=== PATIENT | male | born 1985 | race Two or more races ===

== ENCOUNTER → 2017-12-12 | Day surgery (SDC) | payer MEDICAID ==
[2017-12-11 11:29] LABS: Urine WBC None Seen /hpf (0 - 3)
[2017-12-11 11:41] LABS: Urine Bacteria NONE SEEN /hpf (None Seen); Urine Blood Negative /uL (Negative); Urine Specific Gravity 1.006 (1.001-1.035)
[2017-12-11 11:44] LABS: Basophils # (auto) 0 uL; Basophils % (auto) 0.5 % (0.0-2.0); Eosinophils # (auto) 0.2 uL; Eosinophils % (auto) 3.8 % (0.0-7.0); Hematocrit 48.8 % (41.0-53.0); Hemoglobin 16.4 g/dL (13.5-17.5); Lymphocytes # (auto) 2.2 uL; Lymphocytes % (auto) 33.3 % (10.0-50.0); Mean Corpuscular Hemoglobin 31.6 pg (28.0-32.0); Mean Corpuscular Hgb Conc. 33.7 g/dL (32.0-36.0); Mean Corpuscular Volume 93.8 fL (80.0-100.0); Monocytes # (auto) 0.5 uL; Monocytes % (auto) 8.1 % (0.0-12.0); Neutrophils # (auto) 3.6 uL; Neutrophils % (auto) 54.3 % (37.0-80.0); Nucleated Red Blood Cells % 0.1 %; Platelet Count (auto) 261 10^3/uL (140-450); White Blood Cell 6.6 10^3/uL (4.4-10.8)
[2017-12-11 11:53] LABS: INR 0.92 (0.9-1.15); Partial Thromboplastin Time 27.4 sec (22.64-33.71)
[2017-12-11 11:57] LABS: Albumin 3.8 g/dL (3.4-5.0); BUN/Creatinine Ratio 11.1; Bilirubin, Total 0.4 mg/dL (0.2-1.0); Calcium 8.6 mg/dL (8.5-10.1); Total Protein 7.3 g/dL (6.4-8.2)
[~2017-12-12] VITALS: Ht 180.3 cm; Wt 113.4 kg
[~2017-12-12] MED LIST: BUPIVACAINE 0.75% INJ 10ML MPV SDV IJ ONE; KETOROLAC TROMETH 30 MG/ML 1ML VIAL IV ONE; KETOROLAC TROMETH 30 MG/ML 1ML VIAL ONE; MIDAZOLAM HCL 1MG/1ML-2 ML VIAL ONE; MORPHINE SULFATE INJECTION 1 ML ONE; NEOMYCIN-BACITRACIN-POLYM 15GM TOP OINT TOP ONE; ONDANSETRON HCL 4 MG/2 ML VIAL IV ONE; PROPOFOL 10 MG/ML 20 ML IV ONE; ceFAZolin 1GM/50ML 50 ML IV ONE; ePHEDrine SULFATE 50 MG/ML AMP IV PRN; fentaNYL CITRATE 100 MCG/2 ML VL IV ONE; fentaNYL CITRATE 100 MCG/2 ML VL ONE; hydrALAZINE HCL 20 MG/ML VL IV PRN
[2017-12-12] MEDS: MORPHINE SULFATE 8mg/ml INJ SDV IV PRN ×2 (09:48→10:02)
[2017-12-12 10:15] VITALS: BP 132/81
== END | disposition home or self-care (01) ==
LOC: SUR 06:37
PROVIDERS: ATTEND Podiatrist Foot & Ankle Surgery
DX: M20.12 Hallux valgus (acquired), left foot (principal); M21.622 Bunionette of left foot; M20.42 Other hammer toe(s) (acquired), left foot; Z68.34 Body mass index [BMI] 34.0-34.9, adult
CPT/HCPCS: 28110; 28285; 28296; J3010; L3260; 36415; 73620; 80053; 81001; 85025; 85610; 85730; C1769; J0690; J1885; J2250; J2270; J2704; J3490

== ENCOUNTER 2025-08-10 22:08 | Inpatient (IN) | payer MEDICAID ==
[~2025-08-10] VITALS: Ht 177.8 cm; Wt 104.9 kg
[2025-08-10 23:13] LABS: Hematocrit 46.5 % (41.0-53.0); Hemoglobin 16.0 g/dL (13.5-17.5); Mean Corpuscular Hemoglobin 31.1 pg (28.0-32.0); Mean Corpuscular Volume 90.6 fL (80.0-100.0); Nucleated Red Blood Cells % 0.2 %
[2025-08-10 23:23] LABS: Chloride 102 mmol/L (98-107); Potassium 4.0 mmol/L (3.5-5.1); Sodium 141 mmol/L (136-145)
[2025-08-10 23:24] LABS: Anion Gap 8 (5-15); Calcium 9.6 mg/dL (8.7-10.4)
--- NOTE | 2025-08-10 23:25 | ED.PDOC ---
History of Present Illness HPI Comments 40-year-old male who came to ER for pelvic pain. Patient states for the past 8 months he has been having a left-sided inguinal hernia. For the past month however, hernia would enlarge at times, but patient has been always successfully able to reduce it manually. Today, patient hasnt been able to reduce it, with notable enlarged and swollen left testicle. Denies any urinary symptoms. REVIEW OF SYSTEMS: General: No fever, no chills, or fatigue HEENT: No sore throat, no earache, no congestion, no neck pain. Cardiac: No chest pain. No palpitations. Lungs: No shortness of breath, no cough. GI: No nausea, no vomiting, no diarrhea, no constipation, no abdominal pain : No dysuria, frequency, or urgency. No hematuria. Musculoskeletal: No joint pain , no joint swelling, no extremity edema. Skin: No rash, no itching. Neuro: No headache, no dizziness, no weakness (And as sated in HPI) PHYSICAL EXAM: General: Awake, alert and oriented. No acute distress. Skin: Skin in warm, dry and intact without rashes or lesions. HEENT: The head is normocephalic and atraumatic. Conjunctivae are clear without exudates or hemorrhage. Sclera is non-icteric. Neck: Normal range of motion. No JVD. Cardiac: Regular rate Respiratory: No signs of respiratory distress. No Stridor. Extremities: Upper and lower extremities are atraumatic in appearance without deformity. Abdomen: Large left inguinal hernia extending into the scrotum. Not reducible. No overlying skin changes. Neurological: The patient is awake, alert and oriented to person, place, and time with normal speech. Speech is clear. There is no facial asymmetry. Normal gait Psychiatric: Appropriate mood and affect. Good judgement and insight. Chief Complaint: Pelvic Pain Time Seen by MD: 23:25 Reviewed Notes: Nurses Notes Allergies: Coded Allergies: NO KNOWN ALLERGIES (Unverified , 12/11/17) Home Meds No Active Prescriptions or Reported Meds Information Source: Patient Mode of Arrival: Ambulatory Past Medical History PAST MEDICAL HISTORY: Denies Surgical History: Denies all surgeries Family History Family History: Reviewed,noncontributory to illness Social History Smoker: Non-Smoker Alcohol: Denies ETOH Use Drugs: Denies Drug Use Lives In: Home Was a procedure done? Was a procedure done?: No Differential Dx Considerations may include: Hernia, urinary tract infection, abdominal pain X-Ray, Labs, Meds, VS Vital Signs Date Time Temp Pulse Resp B/P (MAP) Pulse Ox O2 Delivery O2 Flow Rate FiO2 08/11/25 02:30 89 14 132/87 (102) 98 08/11/25 02:08 69 16 134/90 08/11/25 00:23 98.6 92 16 139/89 (106) 98 98.6 08/11/25 00:23 Room Air* 0 21 08/10/25 22:15 98.3 82 18 125/90 96 98.3 Lab Test 08/10/25 22:50 Range/Units White Blood Count 9.2 4.4-10.8 10^3/uL Red Blood Count 5.14 4.5-5.90 10^6/uL Hemoglobin 16.0 13.5-17.5 g/dL Hematocrit 46.5 41.0-53.0 % Mean Corpuscular Volume 90.6 80.0-100.0 fL Mean Corpuscular Hemoglobin 31.1 28.0-32.0 pg Mean Corpuscular Hemoglobin Concent 34.3 32.0-36.0 g/dL Red Cell Distribution Width 14.0 11.8-14.3 % Platelet Count 276 140-450 10^3/uL Mean Platelet Volume 8.2 6.9-10.8 fL Neutrophils (%) (Auto) 55.6 37.0-80.0 % Lymphocytes (%) (Auto) 32.1 10.0-50.0 % Monocytes (%) (Auto) 7.8 0.0-12.0 % Eosinophils (%) (Auto) 4.1 0.0-7.0 % Basophils (%) (Auto) 0.4 0.0-2.0 % Neutrophils # (Auto) 5.1 1.6-8.6 10 ^3/uL Lymphocytes # (Auto) 3.0 0.4-5.4 10 ^3/uL Monocytes # (Auto) 0.7 0-1.3 10 ^3/uL Eosinophils # (Auto) 0.4 0-0.8 10 ^3/uL Basophils # (Auto) 0 0-0.2 10 ^3/uL Nucleated Red Blood Cells 0.2 % Sodium Level 141 136-145 mmol/L Potassium Level 4.0 3.5-5.1 mmol/L Chloride Level 102 98-107 mmol/L Carbon Dioxide Level 31 20-31 mmol/L Anion Gap 8 5-15 Blood Urea Nitrogen 9 9-23 mg/dL Creatinine 0.99 0.700-1.30 mg/dL Glomerular Filtration Rate Calc 99 >90 mL/min BUN/Creatinine Ratio 9.1 L 10.0-20.0 Serum Glucose 114 H 74-106 mg/dL Lactic Acid Level 0.6 0.4-2.0 mmol/L Calcium Level 9.6 8.7-10.4 mg/dL B-Type Natriuretic Peptide 6.47 0-100 pg/mL Current Medications Medications (Trade) Dose Ordered Sig/Dana Route Start Time Stop Time Status Last Admin Morphine Sulfate 2 mg ONCE ONCE IV 08/11/25 01:45 08/11/25 01:46 DC 08/11/25 02:08 EXAM: CT CT AB PEL WITH IV CON ONLY History: Right inguinal hernia include entire scrotum Comparison Study: None TECHNIQUE: Multidetector spiral CT of the chest, abdomen and pelvis was performed from lower neck to pubic symphysis. Intravenous contrast was administered during this examination. Portal venous imaging was obtained. Axial, coronal and sagittal multiplanar reformats were performed by the technologist on a separate workstation. Radiation Dose : 1. Chest/Abdomen/Pelvis: CTDIvol 23.88 mGy, DLP 1528.98 mGy*cm. Contrast: 100 cc Omnipaque 300. FINDINGS: Lower neck: Normal thyroid. Lungs: No focal consolidation, pleural effusion or pneumothorax. Heart/Vascular Structures: Normal heart size. No pericardial effusion. Lymph Nodes: No adenopathy Pleura: No pleural effusion or significant pneumothorax. Liver: The liver is normal in size. No focal lesions. Normal hepatic vascular enhancement. Gallbladder and Biliary Tree: Unremarkable Spleen: Unremarkable Pancreas: The pancreas is normal in appearance without focal lesions or abnormal enhancement. Adrenal Glands: Unremarkable Kidneys: Kidneys demonstrate normal symmetric enhancement without focal lesions, calculi or hydronephrosis. Bladder: Unremarkable Bowel: The stomach is grossly normal in appearance. Small bowel and colon are normal in caliber and distribution. Normal appendix is visualized in the right lower quadrant without findings of appendicitis. Ascites: Absent Lymphadenopathy: No mesenteric, retroperitoneal or periportal lymphadenopathy. Abdominal Wall and Mesentery: Fat containing left inguinal hernia measuring 5.2 x 4.2 cm with significant inflammatory changes. Small right inguinal hernia containing fat without inflammatory changes. Vasculature: The visualized abdominal aorta is normal in size and caliber. Abdominal and pelvic vessels demonstrate normal enhancement. Pelvic Organs: Unremarkable Musculoskeletal: No aggressive focal bony lesions, acute fractures or dislocation. IMPRESSION: Fat containing left inguinal hernia with inflammatory changes. No herniated bowel loops. Small right inguinal hernia containing fat without inflammatory changes. Time of 1ST Reevaluation: 23:19 Reevaluation 1ST: Unchanged Patient Education/Counseling: Other (Need for admission) Family Education/Counseling: No Family Present SEPSIS Sepsis Screen Date sepsis recognized/suspect: Aug 10, 2025 Time Sepsis recognized/suspect: 2218 Recent Procedure: No On Antibiotic Therapy: No Respiratory Rate >20: No Heart Rate >90: No Temp<36 C (96.8 F) or >38.3 C: No SBP <90 or MAP <65 mmHG: No New Acute Mental Status Change: No Is the patient on CPAP, BIPAP,: No Physician Orders Urinalysis (08/10/25 22:33) Ct Ab Pel With Iv Con Only (08/10/25 22:33) Saline Lock (08/10/25 22:33) * Surgical Consult (08/11/25 ) Vital Signs Date Time Temp Pulse Resp B/P (MAP) Pulse Ox O2 Delivery O2 Flow Rate FiO2 08/11/25 02:30 89 14 132/87 (102) 98 08/11/25 02:08 69 16 134/90 08/11/25 00:23 98.6 92 16 139/89 (106) 98 98.6 08/11/25 00:23 Room Air* 0 21 08/10/25 22:15 98.3 82 18 125/90 96 98.3 Laboratory Tests Test 08/10/25 22:50 Lactic Acid Level 0.6 mmol/L (0.4-2.0) White Blood Count 9.2 10^3/uL (4.4-10.8) Medications Medications Dose Ordered Sig/Dana Route Start Time Stop Time Status Last Admin Dose Admin Morphine Sulfate 2 mg ONCE ONCE IV 08/11/25 01:45 08/11/25 01:46 DC 08/11/25 02:08 Departure 1 Departure Time of Disposition: 01:36 Impression: Primary Impression: Left inguinal hernia Disposition: 09 ADMITTED INPATIENT Condition: Stable e-Prescriptions No Active Prescriptions or Reported Meds Comments Patient admitted to hospitalist service for further treatment, evaluation and monitoring. Critical Care Note Critical Care Time?: No Stability Stability form required: No Heart Score Heart Score: Heart Score Response (Comments) Value History N/A 0 EKG N/A 0 Age N/A 0 Risk Factors N/A 0 Troponin N/A 0 Total 0 I personally scribed for BALA WALLS MD ([email or web address]) on 08/10/25 at 23:25. Electronically submitted by Holger Babcock ([employer]). I personally scribed for BALA WALLS MD ([email or web address]) on 08/11/25 at 01:23. Electronically submitted by Holger Babcock ([employer]). BALA WALLS MD Aug 10, 2025 23:25
[2025-08-10 23:29] LABS: BUN/Creatinine Ratio 9.1 (10.0-20.0); Carbon Dioxide 31 mmol/L (20-31)
[2025-08-10 23:30] LABS: Blood Urea Nitrogen 9 mg/dL (9-23); Glucose 114 mg/dL (74-106)
[2025-08-11] MEDS: IOHEXOL 300 MG/ML 100ML BOTTLE IJ ONE (00:37)
--- NOTE | 2025-08-11 01:14 | DVH ---
EXAM: CT CT AB PEL WITH IV CON ONLY History: Right inguinal hernia include entire scrotum Comparison Study: None TECHNIQUE: Multidetector spiral CT of the chest, abdomen and pelvis was performed from lower neck to pubic symphysis. Intravenous contrast was administered during this examination. Portal venous imaging was obtained. Axial, coronal and sagittal multiplanar reformats were performed by the technologist on a separate workstation. Radiation Dose : 1. Chest/Abdomen/Pelvis: CTDIvol 23.88 mGy, DLP 1528.98 mGy*cm. Contrast: 100 cc Omnipaque 300. FINDINGS: Lower neck: Normal thyroid. Lungs: No focal consolidation, pleural effusion or pneumothorax. Heart/Vascular Structures: Normal heart size. No pericardial effusion. Lymph Nodes: No adenopathy Pleura: No pleural effusion or significant pneumothorax. Liver: The liver is normal in size. No focal lesions. Normal hepatic vascular enhancement. Gallbladder and Biliary Tree: Unremarkable Spleen: Unremarkable Pancreas: The pancreas is normal in appearance without focal lesions or abnormal enhancement. Adrenal Glands: Unremarkable Kidneys: Kidneys demonstrate normal symmetric enhancement without focal lesions, calculi or hydronephrosis. Bladder: Unremarkable Bowel: The stomach is grossly normal in appearance. Small bowel and colon are normal in caliber and distribution. Normal appendix is visualized in the right lower quadrant without findings of appendicitis. Ascites: Absent Lymphadenopathy: No mesenteric, retroperitoneal or periportal lymphadenopathy. Abdominal Wall and Mesentery: Fat containing left inguinal hernia measuring 5.2 x 4.2 cm with significant inflammatory changes. Small right inguinal hernia containing fat without inflammatory changes. Vasculature: The visualized abdominal aorta is normal in size and caliber. Abdominal and pelvic vessels demonstrate normal enhancement. Pelvic Organs: Unremarkable Musculoskeletal: No aggressive focal bony lesions, acute fractures or dislocation. IMPRESSION: Fat containing left inguinal hernia with inflammatory changes. No herniated bowel loops. Small right inguinal hernia containing fat without inflammatory changes.
[2025-08-11] MEDS: MORPHINE SULFATE INJ 2 MG/ml SYRG IV ONE (02:08)
[2025-08-11] MEDS: MORPHINE SULFATE 4 MG/ML SYR/VIAL ONE (02:08)
[2025-08-11] MEDS ORDERED: MORPHINE SULFATE INJ 2 MG/ml SYRG IV PRN (05:30)
--- NOTE | 2025-08-11 05:30 | DVHHPRES ---
History of Present Illness Resident Creating Document: SHAYLEE BRAXTON RESIDENT History of Present Illness Patient is a 40-year-old male with no past medical history who came to ER for left inguinal pain which he described as 8/10 in intensity, constant, radiating to suprapubic region, stated that for the past 8 months he has been having the left-sided inguinal hernia but 1 month ago he states it "popped out" but was able to push the hernia back. But since yesterday morning he was unable to reduce the hernia. Today, patient hasn't been able to reduce it, with notable enlarged and swollen left testicle. He denies any dysuria, hematuria, burning sensation with urination, fever, chills, nausea, vomiting, diarrhea. Past surgical history: Left foot surgery Family history: Reviewed noncontributory Personal history: Drinks 8 beers on the weekends, smokes marijuana on the weekends, denies smoking cigarettes , lives with family PCP: Dr. Cash Patient seen at bedside. Patient still complains of 8/10 pain in the left inguinal region which is radiating to suprapubic region. Patient also complained of mild epigastric pain. Review of Systems Constitutional: No: Fever, Chills, Sweats, Weakness, Malaise, Other Eyes: No: Pain, Vision change, Conjunctivae inflammation, Eyelid inflammation, Other, Redness ENT: No: Ear pain, Ear discharge, Nose pain, Nose discharge, Nose congestion, Mouth pain, Mouth swelling, Throat pain, Throat swelling, Other Respiratory: No: Cough, Dry, Shortness of breath, SOB with excertion, Wheezing, Hemoptysis, Pleuritic Pain, Sputum, Wheezing, Other Cardiovascular: No: Chest Pain, Palpitations, Orthopnea, Paroxysmal Noc. Dyspnea, Edema, Lt Headedness, Other Gastrointestinal: Abdominal Pain; No: Nausea, Vomiting, Diarrhea, Constipation, Melena, Hematochezia, Other Genitourinary: No Dysuria, No Frequency, No Incontinence, No Hematuria, No Retention; Other (Left Inguinal pain) Skin: No: Rash, Lesions, Jaundice, Bruising, Other Neurological: No: Weakness, Numbness, Incoordination, Change in speech, Confusion, Seizures, Other Allergies: Coded Allergies: NO KNOWN ALLERGIES (Unverified , 12/11/17) Exam Vital Signs Vital Signs Date Time Temp Pulse Resp B/P (MAP) Pulse Ox O2 Delivery O2 Flow Rate FiO2 08/11/25 02:30 89 14 132/87 (102) 98 08/11/25 00:23 98.6 98.6 08/11/25 00:23 Room Air* 0 21 Exam Patient lying on bed in moderate distress General: Patient alert and oriented in person, place and time. Patient following commands. HEENT: Normocephalic, atraumatic, moist mucous membranes Respiratory/pulmonary: Clear lungs bilaterally, vesicular murmurs present in almost all lung dale, no associated crackles or wheezes. Cardiovascular: Normal heart sounds S1 and S2 with no associated murmurs Abdomen: Abdomen nondistended, there is no pain to palpation in any of the abdominal quadrants, no palpable masses. Obese abdomen, Inguinal bulging with tenderness on palpation of left scrotum Extremities: There is no peripheral edema present at the lower extremities. Peripheral Pulses: 3+ Radial (R). 3+ Radial (L). 3+ Dorsalis pedis (R). 3+ Dorsalis pedis(L) Skin: No rashes or pruritus, there is no sacral edema present at this time. Neurological: Intact cranial nerves with no focal neurologic deficits Labs/Xrays Labs Test 08/10/25 22:50 Range/Units White Blood Count 9.2 4.4-10.8 10^3/uL Red Blood Count 5.14 4.5-5.90 10^6/uL Hemoglobin 16.0 13.5-17.5 g/dL Hematocrit 46.5 41.0-53.0 % Mean Corpuscular Volume 90.6 80.0-100.0 fL Mean Corpuscular Hemoglobin 31.1 28.0-32.0 pg Mean Corpuscular Hemoglobin Concent 34.3 32.0-36.0 g/dL Red Cell Distribution Width 14.0 11.8-14.3 % Platelet Count 276 140-450 10^3/uL Mean Platelet Volume 8.2 6.9-10.8 fL Neutrophils (%) (Auto) 55.6 37.0-80.0 % Lymphocytes (%) (Auto) 32.1 10.0-50.0 % Monocytes (%) (Auto) 7.8 0.0-12.0 % Eosinophils (%) (Auto) 4.1 0.0-7.0 % Basophils (%) (Auto) 0.4 0.0-2.0 % Neutrophils # (Auto) 5.1 1.6-8.6 10 ^3/uL Lymphocytes # (Auto) 3.0 0.4-5.4 10 ^3/uL Monocytes # (Auto) 0.7 0-1.3 10 ^3/uL Eosinophils # (Auto) 0.4 0-0.8 10 ^3/uL Basophils # (Auto) 0 0-0.2 10 ^3/uL Nucleated Red Blood Cells 0.2 % Sodium Level 141 136-145 mmol/L Potassium Level 4.0 3.5-5.1 mmol/L Chloride Level 102 98-107 mmol/L Carbon Dioxide Level 31 20-31 mmol/L Anion Gap 8 5-15 Blood Urea Nitrogen 9 9-23 mg/dL Creatinine 0.99 0.700-1.30 mg/dL Glomerular Filtration Rate Calc 99 >90 mL/min BUN/Creatinine Ratio 9.1 L 10.0-20.0 Serum Glucose 114 H 74-106 mg/dL Lactic Acid Level 0.6 0.4-2.0 mmol/L Calcium Level 9.6 8.7-10.4 mg/dL B-Type Natriuretic Peptide 6.47 0-100 pg/mL SEPSIS Sepsis Screen Date sepsis recognized/suspect: Aug 10, 2025 Time Sepsis recognized/suspect: 2218 Recent Procedure: No On Antibiotic Therapy: No Respiratory Rate >20: No Heart Rate >90: No Temp<36 C (96.8 F) or >38.3 C: No SBP <90 or MAP <65 mmHG: No New Acute Mental Status Change: No Is the patient on CPAP, BIPAP,: No Physician Orders Urinalysis (08/10/25 22:33) Ct Ab Pel With Iv Con Only (08/10/25 22:33) Saline Lock (08/10/25 22:33) * Surgical Consult (08/11/25 ) Admit (08/11/25 05:03) Complete Blood Count (08/12/25 04:00) Comprehensive Metabolic Panel (08/12/25 04:00) Npo (Nothing By Mouth) Diet (08/11/25 Breakfast) Condition: Serious (08/11/25 05:03) Bedrest With Bathroom Privileg (08/11/25 05:03) Stat Ekg For Chest Pain (08/11/25 05:03) Notify Of Changes From Base (08/11/25 05:03) Stave Machine Tender For 24 Hours (08/11/25 05:03) Emergency Dysrhythmia Protocol (08/11/25 05:03) Rhythm Strips Once Every Shift (08/11/25 05:03) Vital Signs Date Time Temp Pulse Resp B/P (MAP) Pulse Ox O2 Delivery O2 Flow Rate FiO2 08/11/25 02:30 89 14 132/87 (102) 98 08/11/25 02:08 69 16 134/90 08/11/25 00:23 98.6 92 16 139/89 (106) 98 98.6 08/11/25 00:23 Room Air* 0 21 08/10/25 22:15 98.3 82 18 125/90 96 98.3 Laboratory Tests Test 08/10/25 22:50 Lactic Acid Level 0.6 mmol/L (0.4-2.0) White Blood Count 9.2 10^3/uL (4.4-10.8) Medications Medications Dose Ordered Sig/Dana Route Start Time Stop Time Status Last Admin Dose Admin Morphine Sulfate 2 mg ONCE ONCE IV 08/11/25 01:45 08/11/25 01:46 DC 08/11/25 02:08 2 MG Assessment/Plan Assessment/Plan Incarcerated left inguinal hernia -CT abdomen showed Fat containing left inguinal hernia with inflammatory changes. No herniated bowel loops. Small right inguinal hernia containing fat wi thout inflammatory changes. -surgery consulted by ED - IV pain management -IV fluids Obesity BMI 35.4 Patient counseled on diet, exercise, lifestyle modification for 18 minutes Diet: NPO Goals of care addressed with the patient for more than 27 minutes: Full code status Case discussed with Dr. Salazar, patient and nurse Plan discussed with: Patient My Orders Orders - SHAYLEE BRAXTON RESIDENT Procedure Category Date Status Time Admit ADMIT 08/11/25 Transmitted 05:03 Complete Blood Count LAB 08/12/25 Verified 04:00 Comprehensive LAB 08/12/25 Verified Metabolic Panel 04:00 Npo (Nothing By DIET 08/11/25 Transmitted Mouth) Diet Breakfast Condition: Serious [facility] 08/11/25 In Process 05:03 Bedrest With Bathroom [facility] 08/11/25 In Process Privileg 05:03 Stat Ekg For Chest [facility] 08/11/25 In Process Pain 05:03 Notify Of Changes [facility] 08/11/25 In Process From Base 05:03 Stave Machine Tender For [facility] 08/11/25 In Process 24 Hours 05:03 Emergency Dysrhythmia [facility] 08/11/25 In Process Protocol 05:03 Rhythm Strips Once [facility] 08/11/25 In Process Every Shift 05:03 Visit Coding STANDARD RES Billing Provider: LYDIA SALAZAR MD Date of Service if different f: Aug 11, 2025 Common Visit Codes: [id number] INP/OBS CARE (HIGH) Secondary Visit Codes: [id number] CARE PLAN 30 MINUTES SHAYLEE BRAXTON RESIDENT Aug 11, 2025 05:30
[2025-08-11] MEDS: SODIUM CHLORIDE 0.9% 1,000 ML IV ONE (06:21)
[2025-08-11 06:50] LABS: Hematocrit 46.4 % (41.0-53.0); Hemoglobin 15.8 g/dL (13.5-17.5); Mean Corpuscular Hemoglobin 31.1 pg (28.0-32.0); Mean Corpuscular Volume 91.1 fL (80.0-100.0); Nucleated Red Blood Cells % 0.0 %
[2025-08-11 06:52] LABS: Alanine Aminotransferase 20 U/L (7-40); Albumin 4.5 g/dL (3.2-4.8); Alkaline Phosphatase 78 U/L (46-116); Anion Gap 8 (5-15); BUN/Creatinine Ratio 6.7 (10.0-20.0); Bilirubin, Total 0.4 mg/dL (0.2-1.0); Calcium 9.5 mg/dL (8.7-10.4); Carbon Dioxide 30 mmol/L (20-31); Chloride 103 mmol/L (98-107); Glucose 95 mg/dL (74-106); Potassium 4.2 mmol/L (3.5-5.1); Sodium 141 mmol/L (136-145); Total Protein 7.3 g/dL (5.7-8.2)
[2025-08-11 06:53] LABS: INR 0.98 (0.9-1.15); Partial Thromboplastin Time 27.7 SEC (24.5-34.5); Prothrombin Time 10.4 sec (9.3-11.8)
[2025-08-11 06:58] LABS: Blood Urea Nitrogen 6 mg/dL (9-23)
[2025-08-11 09:00] VITALS: BP 131/85; PULSE 60; RESP 20; TEMP 98.5; O2SAT 99
--- NOTE | 2025-08-11 09:23 | DVHINCON2 ---
Date of service: Aug 11, 2025 Allergies: Coded Allergies: NO KNOWN ALLERGIES (Unverified , 12/11/17) Home Meds No Active Prescriptions or Reported Meds Current Medications Current Medications Medications (Trade) Dose Ordered Sig/Dana Route PRN Reason Start Time Stop Time Status Last Admin Morphine Sulfate 2 mg Q6HPRN PRN IV MODERATE PAIN (4-6 PAIN SCALE) 08/11/25 05:30 Vital Signs Vital Signs Date Time Temp Pulse Resp B/P (MAP) Pulse Ox O2 Delivery O2 Flow Rate FiO2 08/11/25 02:30 89 14 132/87 (102) 98 08/11/25 00:23 98.6 98.6 08/11/25 00:23 Room Air* 0 21 Labs/Diagnostic Data Labs Test 08/11/25 06:13 08/10/25 22:50 Range/Units White Blood Count 6.8 # 4.4-10.8 10^3/uL Red Blood Count 5.10 4.5-5.90 10^6/uL Hemoglobin 15.8 13.5-17.5 g/dL Hematocrit 46.4 41.0-53.0 % Mean Corpuscular Volume 91.1 80.0-100.0 fL Mean Corpuscular Hemoglobin 31.1 28.0-32.0 pg Mean Corpuscular Hemoglobin Concent 34.1 32.0-36.0 g/dL Red Cell Distribution Width 13.4 11.8-14.3 % Platelet Count 269 140-450 10^3/uL Mean Platelet Volume 8.0 6.9-10.8 fL Neutrophils (%) (Auto) 59.7 37.0-80.0 % Lymphocytes (%) (Auto) 27.9 10.0-50.0 % Monocytes (%) (Auto) 8.2 0.0-12.0 % Eosinophils (%) (Auto) 3.8 0.0-7.0 % Basophils (%) (Auto) 0.4 0.0-2.0 % Neutrophils # (Auto) 4.0 1.6-8.6 10 ^3/uL Lymphocytes # (Auto) 1.9 0.4-5.4 10 ^3/uL Monocytes # (Auto) 0.6 0-1.3 10 ^3/uL Eosinophils # (Auto) 0.3 0-0.8 10 ^3/uL Basophils # (Auto) 0 0-0.2 10 ^3/uL Nucleated Red Blood Cells 0.0 % Prothrombin Time 10.4 9.3-11.8 sec Prothrombin Time INR 0.98 0.9-1.15 Activated Partial Thromboplast Time 27.7 24.5-34.5 SEC Sodium Level 141 136-145 mmol/L Potassium Level 4.2 3.5-5.1 mmol/L Chloride Level 103 98-107 mmol/L Carbon Dioxide Level 30 20-31 mmol/L Anion Gap 8 5-15 Blood Urea Nitrogen 6 L 9-23 mg/dL Creatinine 0.89 0.700-1.30 mg/dL Glomerular Filtration Rate Calc 112 >90 mL/min BUN/Creatinine Ratio 6.7 L 10.0-20.0 Serum Glucose 95 74-106 mg/dL Calcium Level 9.5 8.7-10.4 mg/dL Total Bilirubin 0.4 0.2-1.0 mg/dL Aspartate Amino Transferase (AST) 17 13-40 U/L Alanine Aminotransferase (ALT) 20 7-40 U/L Alkaline Phosphatase 78 46-116 U/L Total Protein 7.3 5.7-8.2 g/dL Albumin 4.5 3.2-4.8 g/dL Lactic Acid Level 0.6 0.4-2.0 mmol/L B-Type Natriuretic Peptide 6.47 0-100 pg/mL Assessment 40 year old male with 8 month history of left scrotal discomfort and painful left inguinal hernia. Scrotal ultrasound reported as showing normal arterial blood flow to both testicles, Ct scan shows no evidence of bowel incarceration, patient without nausea or vomiting, repair risks and complications explained in detail. Plan discussed with: Patient RITA MONDRAGON MD Aug 11, 2025 09:23
[2025-08-11 10:08] VITALS: BP 131/85; PULSE 60; RESP 18; TEMP 98.5; O2SAT 99
--- NOTE | 2025-08-11 10:24 | DVH ---
CHEST RADIOGRAPH INDICATION: sob TECHNIQUE: Single frontal view of the chest was obtained COMPARISON: None FINDINGS: Lines and Tubes: None Lungs: No focal consolidation. Pleura: No effusion. No pneumothorax. Cardiomediastinal contours: Unremarkable Bones: No acute osseous abnormality. IMPRESSION: 1. No acute cardiopulmonary disease.
--- NOTE | 2025-08-11 11:22 | DVH ---
ULTRASOUND OF SCROTUM AND CONTENTS. INDICATION: R/O testicle ischemia COMPARISON: None TECHNIQUE: Multiple real-time grayscale sonographic and color and duplex Doppler images of the scrotum and its contents were obtained. FINDINGS: RIGHT TESTICLE; Measures 4.9 x 3.2 x 2.9 cm. Volume of the right testicle is 23.8 mL Right epididymis measures 1.6 cm LEFT TESTICLE: Measures 4.3 x 3.3 x 3.5 cm. Volume of the left testicle is 25.6 mL Left hydrocele An isoechoic structure extending from the left inguinal canal into the left scrotum most likely representing fatty tissue from the left inguinal hernia. This measures 5 x 2.5 x 4.5 cm. This was described on CT abdomen pelvis of 08/11/2025. Both testicles demonstrate homogeneous echotexture without evidence of focal lesions. The right epididymal head measures 1.6 cm cm. The left epididymal head measures 1.1 cm. Subsequent color and duplex Doppler interrogation of the testes demonstrated symmetric normal vascular flow to both testicles. No focal areas of hyperemia were seen. IMPRESSION: 1. Right testicle measures 4.9 cm. Left testicle measures 4.3 cm. 2. Testicular parenchyma appears normal bilaterally 3. Patient is known to have fatty left inguinal hernia which according to this study extends into the scrotum on the left. 4. Left hydrocele
[2025-08-11 11:44] LABS: Urine Protein, UAD Negative (Negative)
[2025-08-11 11:47] LABS: Opiate Scree,Urine Neg (NEGATIVE)
[2025-08-11 11:48] LABS: Amphetamine Screen, Urine Neg (NEGATIVE); Barbiturate Scree,Urine Neg (NEGATIVE); Benzodiazephine Screen, Urine Neg (NEGATIVE); Cannabinoid Screen, Urine Pos (NEGATIVE); Cocaine Screen, Urine Neg (NEGATIVE); Phencyclidine Screen, Urine Neg (NEGATIVE)
[2025-08-11 13:00] VITALS: BP 138/88; PULSE 64; RESP 20; TEMP 97.7; O2SAT 99
--- NOTE | 2025-08-11 15:28 | DVHPNRES ---
Progress Note Date Seen: Aug 11, 2025 Resident Creating Document: FRANNIE KENDALL RESIDENT Medical Necessity Reason Pt with a Central, PICC or Fol: No Subjective Review of Systems 40-year-old male with no significant PMHx came to this facility for left inguinal pain and swelling. Patient reports that 8 months ago, he felt a lump in his left inguinal region after carrying heavy weight, as his job demanded of it. He reports that he was always able to lie down flat and push the hernia back ( for by his PCP) but for the past month he has been experiencing increased pain, describing it as 8/10 in intensity, constant, radiating to the suprapubic region and since yesterday morning, he has been unable to reduce the hernia. He complains of increased pain 10/10 in intensity, associated with nausea but no vomiting. On inquiry, patient states that he has been to his primary care physician to show the hernia but was told no operative procedure was needed before. He denies any dysuria, hematuria, burning sensation with the urine, fever, chills, vomiting or change in bowel movement. Past surgical history: Left foot surgery Family history: Reviewed noncontributory Personal history: Drinks 8 beers on the weekends, smokes marijuana 3-4 joints on the weekends, denies smoking cigarettes , lives with family Allergies: None PCP: Dr. Cash ROS: 08/11/2025: Patient seen at bedside. Patient still complains of 8/10 pain in the left inguinal region which is radiating to suprapubic region. Surgery on board. Testicular ultrasound, CT abdominal/pelvis shows fat containing inguinal hernia, with no bowel loops present in it. Surgery has suggested hernia repair, consent for has been signed. Patient's pain managed with morphine 2 mg IV q.4 PRN. Chest x-ray is negative, PT INR is normal, EKG ordered, pending. Patient will be NPO past midnight for surgery. Objective vital signs Vital Sign Date Time Temp Pulse Resp B/P (MAP) Pulse Ox O2 Delivery O2 Flow Rate FiO2 08/11/25 13:00 97.7 64 20 138/88 (105) 99 97.7 08/11/25 10:08 Room Air* 0 21 medications Current Medications Medications Dose Ordered Sig/Dana Route Start Time Stop Time Status Last Admin Dose Admin Morphine Sulfate 2 mg Q4HPRN PRN IV 08/11/25 09:45 Examination Pt is lying on bed General Appearance: Alert, Oriented X3, Cooperative, in mild distress HEENT: Atraumatic, Mucous membranes moist/pink Respiratory: Clear to auscultation, Normal air movement, No added sounds Cardiovascular: Regular rate, Normal S1, Normal S2, No murmurs Abdominal: Active bowel sounds, Soft, no distention, no tenderness Extremities: No edema, Normal pulses, left inguinal bulge extending from suprapubic region to left lower scrotum, cord-like, tender as hard on palpation Skin: No Significant rash, except past surgical scars Neuro: Normal speech, sensorimotor deficits none Psych/Mental Status: Mental status NL, Mood NL Nurse was there as support services rep during examination laboratory and microbiology Laboratory Tests 08/11/25 06:13 Test 08/11/25 06:13 Range/Units Serum Glucose 95 74-106 mg/dL Labs and/or images reviewed: Labs reviewed by me, Image(s) reviewed by me Problem List/Assessment/Plan Problem List/Assessment/Plan # Irreducible, Incarcerated left inguinal hernia # Left hydrocele - CT abdomen showed Fat containing left inguinal hernia with inflammatory changes. No herniated bowel loops. Small right inguinal hernia containing fat without inflammatory changes. - ultrasound of scrotum and contents shows :'Right testicle measures 4.9 cm. Left testicle measures 4.3 cm; Testicular parenchyma appears normal bilaterally; Patient is known to have fatty left inguinal hernia which according to this study extends into the scrotum on the left; Left hydrocele - surgery on board - IV pain management with morphine sulfate 2 mg q.4 PRN - IV fluids - PT/INR 10.4/0.98 - chest x-ray shows no acute cardiopulmonary disease - UA negative for UTI #Substance abuse-cannabinoid - seen in UDS - patient counseled extensively on the arms and side effects cannabinoids has a held and encouraged to quit smoking #Obesity, BMI 35.4 - Patient counseled on diet, exercise, lifestyle modification for 18 minutes Diet: NPO after midnight Goals of care addressed with the patient for more than 27 minutes: Full code status Case discussed with Dr. Gupta, patient and nurse Plan discussed with: Patient, Other (rn) My Orders My Orders Orders - FRANNIE KENDALL RESIDENT Procedure Category Date Status Time Chest Xray 1 View XY 12/16/25 Resulted 09:28 Morphine Sulfate PHA 08/11/25 In Process Injection 09:45 Electrocardigram EKG 08/11/25 Logged 13:12 Visit Coding STANDARD RES Billing Provider: VALERIE GUPTA MD Date of Service if different f: Aug 11, 2025 Common Visit Codes: [id number] INP/OBS CARE(HIGH) FRANNIE KENDALL RESIDENT Aug 11, 2025 15:28 VALERIE GUPTA MD Aug 11, 2025 18:27
[2025-08-11] MEDS: MORPHINE SULFATE 4 MG/ML SYR/VIAL IV PRN (16:19)
[2025-08-11 17:07] VITALS: BP 143/78; PULSE 62; RESP 17; TEMP 97.9; O2SAT 98
[2025-08-11 20:56] VITALS: BP 132/89; PULSE 62; RESP 18; TEMP 97.8; O2SAT 98
[2025-08-12 00:22] VITALS: BP 102/71; PULSE 68; RESP 15; TEMP 97.9; O2SAT 98
[2025-08-12 04:55] VITALS: BP 124/89; PULSE 60; RESP 15; TEMP 97.1; O2SAT 98
[2025-08-12 06:06] LABS: Hematocrit 49.3 % (41.0-53.0); Hemoglobin 17.1 g/dL (13.5-17.5); Mean Corpuscular Hemoglobin 31.6 pg (28.0-32.0); Mean Corpuscular Volume 91.0 fL (80.0-100.0); Nucleated Red Blood Cells % 0.2 %
[2025-08-12 06:25] LABS: INR 1.0 (0.9-1.15); Partial Thromboplastin Time 28.8 SEC (24.5-34.5); Prothrombin Time 10.6 sec (9.3-11.8)
[2025-08-12 06:35] LABS: Alanine Aminotransferase 22 U/L (7-40); Alkaline Phosphatase 81 U/L (46-116); Anion Gap 8 (5-15); BUN/Creatinine Ratio 7.1 (10.0-20.0); Calcium 9.7 mg/dL (8.7-10.4); Carbon Dioxide 30 mmol/L (20-31); Chloride 103 mmol/L (98-107); Glucose 92 mg/dL (74-106); Potassium 4.1 mmol/L (3.5-5.1); Sodium 141 mmol/L (136-145); Total Protein 7.3 g/dL (5.7-8.2)
[2025-08-12 06:36] LABS: Albumin 4.5 g/dL (3.2-4.8); Bilirubin, Total 0.8 mg/dL (0.2-1.0); Blood Urea Nitrogen 6 mg/dL (9-23)
[2025-08-12 09:00] VITALS: BP 122/78; PULSE 74; RESP 17; TEMP 98.2; O2SAT 96
[2025-08-12] MEDS: KETOROLAC TROMETH 30 MG/ML 1ML VIAL IV ONE (12:15)
[2025-08-12] MEDS ORDERED: METOCLOPRAMIDE HCL 5MG/ml INJ 2ml VIAL IV PRN (12:15)
[2025-08-12] MEDS ORDERED: HYDROmorphone HCL 2 MG/ML VL/or syr IV PRN (12:15)
[2025-08-12] MEDS: ceFAZolin 1GM/50ML 100 ML IV ONE (12:36)
[2025-08-12] MEDS ORDERED: KETAMINE 50mg/ML 1ml syringe ONE (13:00)
[2025-08-12] MEDS ORDERED: LIDOCAINE 1% INJ PF 5ML AMP ONE (13:01)
[2025-08-12] MEDS ORDERED: ONDANSETRON HCL 4 MG/2 ML VIAL ONE (13:01)
[2025-08-12] MEDS ORDERED: MEPERIDINE HCL (25 MG/ML) 1ML VIAL ONE (13:01)
[2025-08-12] MEDS ORDERED: fentaNYL CITRATE 100 MCG/2 ML VL ONE (13:01)
[2025-08-12] MEDS ORDERED: LIDOCAINE HCL 2% TOP JELLY 5ML TOP ONE (13:01)
[2025-08-12] MEDS ORDERED: ROCURONIUM 10MG/ML 10ML VIAL IV ONE (13:01)
[2025-08-12] MEDS ORDERED: MIDAZOLAM HCL 2MG/2ML 2ml VIAL (1mg/ml) ONE (13:01)
[2025-08-12] MEDS ORDERED: PROPOFOL 10 MG/ML 20 ML IV ONE (13:01)
[2025-08-12] MEDS: LIDOCAINE W/ EPINEPHRINE 1% 20ML VIAL ONE (13:43)
[2025-08-12] MEDS: BUPIVACAINE HCL 0.25% P/F 10 ML VIAL ONE (13:43)
[2025-08-12 14:00] VITALS: PULSE 92; RESP 12; O2SAT 99
[2025-08-12] MEDS ORDERED: ceFAZolin 1GM/50ML 50 ML IV SCH (14:00)
[2025-08-12] MEDS: ACETAMINOPHEN IV 1000 MG/100ML (10MG/ML) IV ONE (14:05)
[2025-08-12] MEDS: ACETAMINOPHEN IV 100 ML IV ONE (14:05)
[2025-08-12] MEDS: HYDROmorphone HCL 2 MG/ML VL/or syr IV PRN (14:14)
[2025-08-12] MEDS: MORPHINE SULFATE INJ 2 MG/ml SYRG IV PRN (14:35)
[2025-08-12] MEDS: MORPHINE SULFATE 4 MG/ML SYR/VIAL IV PRN (15:23)
--- NOTE | 2025-08-12 16:00 | DVHOP ---
DATE OF SURGERY: 08/12/2025 PREOPERATIVE DIAGNOSIS: Huge left inguinal hernia (inguinal scrotal). SURGEON: Du Shah M.D. OPTOMETRIC TECHNICIAN: Quinn Dela Cruz N.P. ANESTHESIA: General endotracheal. ANESTHESIOLOGIST: Dr. Ray PROCEDURE: Repair of large left inguinal (direct and indirect hernia). DESCRIPTION OF PROCEDURE: Under general endotracheal anesthesia with the patient's skin prepped and draped, infiltrated with 0.25% Marcaine and 0.5% Xylocaine. The left groin was incised over the visible palpable bulge. Incision deepened with electrocautery through abundant adipose tissue onto the fibers of the external oblique aponeurosis. The external ring contained a massively enlarged cord structures due to fatty infiltration and then a large indirect herniation. The indirect hernia reduced itself prior to opening of the sac; however, it all appeared viable without any evidence of chronic inflammatory changes. The sac was opened and digitally explored. It contained no viscera or no fluid at that time. The sac was dissected free of cremasteric fibers. It was traced high up into the internal inguinal ring, twisted on itself, doubly ligated, and the excess peritoneum was amputated and submitted for histopathologic examination. The floor of the hernia then was repaired using nonabsorbable sutures through conjoined tendon and reflecting portion of the Poupart's ligament. The repair of the hernia floor was carried out far enough laterally to decrease the size of the internal ring, however, without compromising the circulation within the cord structure. The ilioinguinal nerve was identified, reflected laterally and protected throughout the procedure. The cord structures were then returned back into their normal anatomical position as was the ilioinguinal nerve. The testicle was returned into its normal anatomical position. The wound was irrigated and approximation accomplished utilizing Monocryl sutures, Dermabond, glue and Steri-Strips. The patient remained stable throughout the procedure and left the operating room following an accurate needle and sponge count. MD REGINALD Perea/GÓMEZ TID: [id number] RECEIPT: [id number]
[2025-08-12 17:00] VITALS: BP 149/104; PULSE 67; RESP 18; TEMP 98.2; O2SAT 100
[2025-08-12] MEDS: ceFAZolin 1GM/50ML 50 ML IV SCH (18:02)
--- NOTE | 2025-08-12 18:17 | DVHPNRES ---
Progress Note Date Seen: Aug 12, 2025 Resident Creating Document: FRANNIE KENDALL RESIDENT Medical Necessity Reason Pt with a Central, PICC or Fol: No Subjective Review of Systems 40-year-old male with no significant PMHx came to this facility for left inguinal pain and swelling. Johnathan nt reports that 8 months ago, he felt a lump in his left inguinal region after carrying heavy weight, as his job demanded of it. He reports that he was always able to lie down flat and push the hernia back ( for by his PCP) but for the past month he has been experiencing increased pain, describing it as 8/10 in intensity, constant, radiating to the suprapubic region and since yesterday morning, he has been unable to reduce the hernia. He complains of increased pain 10/10 in intensity, associated with nausea but no vomiting. On inquiry, patient states that he has been to his primary care physician to show the hernia but was told no operative procedure was needed before. He denies any dysuria, hematuria, burning sensation with the urine, fever, chills, vomiting or change in bowel movement. Past surgical history: Left foot surgery Family history: Reviewed noncontributory Personal history: Drinks 8 beers on the weekends, smokes marijuana on the weekends, denies smoking cigarettes , lives with family PCP: Dr. Cash ROS: 08/11/2025: Patient seen at bedside. Patient still complains of 8/10 pain in the left inguinal region which is radiating to suprapubic region. Surgery consulted, testicular ultrasound, CT abdominal/pelvis shows fat containing inguinal hernia, with no bowel loops present in it. 08/12/2025: Patient was seen and examined at the bedside. Patient complained of throbbing pain in his groin 9/10 in intensity today morning. Patient underwent Repair of large left inguinal (direct and indirect hernia) surgery today without any complication. Cefazolin 1 g Q8 has been added. Clear liquid Diet started. Possible DC tomorrow. Objective vital signs Vital Sign Date Time Temp Pulse Resp B/P (MAP) Pulse Ox O2 Delivery O2 Flow Rate FiO2 08/12/25 17:00 98.2 67 18 149/104 (119) 100 98.2 08/12/25 14:00 Room Air 0 08/12/25 14:00 100 Total Intake and Output 12/08/11/25 08/12/25 15:00 23:00 07:00 Intake Total 0 ml 0 ml Balance 0 ml 0 ml medications Current Medications Medications Dose Ordered Sig/Dana Route Start Time Stop Time Status Last Admin Dose Admin Morphine Sulfate 2 mg Q4HPRN PRN IV 08/11/25 09:45 08/12/25 10:16 2 MG Cefazolin Sodium 50 ml @ 100 mls/hr Q8H IV 08/12/25 18:00 Examination General: Patient alert and oriented in person, place and time. Patient following commands. HEENT: Normocephalic, atraumatic, moist mucous membranes Respiratory/pulmonary: Clear lungs bilaterally, vesicular murmurs present in almost all lung dale, no associated crackles or wheezes. Cardiovascular: Normal heart sounds S1 and S2 with no associated murmurs Abdomen: Abdomen nondistended, there is no pain to palpation in any of the abdominal quadrants, no palpable masses. Obese abdomen. Dry gauze placed over hernia repair surgery, no soakage Extremities: There is no peripheral edema present at the lower extremities. Peripheral Pulses: 3+ Radial (R). 3+ Radial (L). 3+ Dorsalis pedis (R). 3+ Dorsalis pedis(L) Skin: No rashes or pruritus, there is no sacral edema present at this time. Neurological: Intact cranial nerves with no focal neurologic deficits laboratory and microbiology Laboratory Tests 08/12/25 04:54 Test 08/12/25 04:54 Range/Units Serum Glucose 92 74-106 mg/dL Labs and/or images reviewed: Labs reviewed by me, Image(s) reviewed by me Problem List/Assessment/Plan Problem List/Assessment/Plan # Irreducible, Incarcerated left inguinal hernia S/p hernia repair # Left hydrocele - CT abdomen showed Fat containing left inguinal hernia with inflammatory changes. No herniated bowel loops. Small right inguinal hernia containing fat without inflammatory changes. - ultrasound of scrotum and contents shows :'Right testicle measures 4.9 cm. Left testicle measures 4.3 cm; Testicular parenchyma appears normal bilaterally; Patient is known to have fatty left inguinal hernia which according to this study extends into the scrotum on the left; Left hydrocele - IV pain management with morphine sulfate 2 mg q.4 PRN - IV fluids - PT/INR 10.4/0.98 - chest x-ray shows no acute cardiopulmonary disease - UA negative for UTI - surgery on board, Repair of large left inguinal (direct and indirect hernia) surgery today without any complication on 08/12/25 - Cefazolin 1 g Q 8 #Substance abuse-cannabinoid - seen in UDS - patient counseled extensively on the arms and side effects cannabinoids has a held and encouraged to quit smoking #Obesity, BMI 35.4 - Patient counseled on diet, exercise, lifestyle modification for 18 minutes Diet: Clear liquid Diet Goals of care addressed with the patient for more than 27 minutes: Full code status Case discussed with Dr. Gupta, patient and nurse Plan discussed with: Patient, Other (rn) Visit Coding STANDARD RES Billing Provider: VALERIE GUPTA MD Date of Service if different f: Aug 12, 2025 Common Visit Codes: [id number] INP/OBS CARE(HIGH) FRANNIE KENDALL RESIDENT Aug 12, 2025 18:17 VALERIE GUPTA MD Aug 13, 2025 19:51
[2025-08-12 21:00] VITALS: BP 132/80; PULSE 65; RESP 20; TEMP 97.8; O2SAT 100
[2025-08-13 00:44] VITALS: BP 132/89; PULSE 66; RESP 20; TEMP 97.9; O2SAT 97
[2025-08-13 05:00] VITALS: BP 122/83; PULSE 75; RESP 20; TEMP 98; O2SAT 99
[2025-08-13 06:43] LABS: Hematocrit 47.0 % (41.0-53.0); Hemoglobin 16.4 g/dL (13.5-17.5); Mean Corpuscular Hemoglobin 31.7 pg (28.0-32.0); Mean Corpuscular Volume 90.9 fL (80.0-100.0); Nucleated Red Blood Cells % 0.1 %
[2025-08-13 06:52] LABS: Anion Gap 9 (5-15); Calcium 9.2 mg/dL (8.7-10.4); Carbon Dioxide 27 mmol/L (20-31); Chloride 104 mmol/L (98-107); Potassium 4.0 mmol/L (3.5-5.1); Sodium 140 mmol/L (136-145)
[2025-08-13 06:58] LABS: BUN/Creatinine Ratio 8.5 (10.0-20.0); Glucose 93 mg/dL (74-106)
[2025-08-13 06:59] LABS: Blood Urea Nitrogen 7 mg/dL (9-23)
[2025-08-13 08:38] VITALS: BP 129/80; PULSE 70; RESP 20; TEMP 98.2; O2SAT 94
--- NOTE | 2025-08-13 09:22 | ECG ---
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
--- NOTE | 2025-08-13 11:28 | DVHPN2 ---
Subjective Date Seen: Aug 13, 2025 Post op day Post op day: 1 Patient reports: No new complaints Nursing reports: No new complaints General: Normal HNT: Normal Cardiovascular: Normal Respiratory: Normal Gastrointestinal: Normal Genitourinary: Normal Musculoskeletal: Normal Neurological: Normal Objective Vitals Vital Sign Date Time Temp Pulse Resp B/P (MAP) Pulse Ox O2 Delivery O2 Flow Rate FiO2 08/13/25 10:53 70 20 138/68 08/13/25 08:38 98.2 94 98.2 08/13/25 08:00 Room Air* 0 21 Total Intake and Output 08/12/25 08/12/25 08/13/25 15:00 23:00 07:00 Intake Total 100 ml 200 ml 250 ml Balance 100 ml 200 ml 250 ml Medications Current Medications Medications Dose Ordered Sig/Dana Route Start Time Stop Time Status Last Admin Dose Admin Morphine Sulfate 2 mg Q4HPRN PRN IV 08/11/25 09:45 08/13/25 10:23 2 MG Cefazolin Sodium 50 ml @ 100 mls/hr Q8H IV 08/12/25 18:00 08/13/25 10:01 100 MLS/HR General: Normal Head/Eyes: Normal ENT: Normal Neck: Normal Lungs: Normal Cardiovascular: Normal, Regular rate and rhythm Abdominal: Normal Musculoskeletal: Normal Extremities: Normal Skin: Normal Neurological: Normal Labs and Microbiology Laboratory Tests 08/13/25 04:55 Test 08/13/25 04:55 Range/Units Serum Glucose 93 74-106 mg/dL Ass/Plan Labs and/or images reviewed: Labs reviewed by me, Image(s) reviewed by me Problem List # Irreducible, Incarcerated left inguinal hernia S/p hernia repair # Left hydrocele - CT abdomen showed Fat containing left inguinal hernia with inflammatory changes. No herniated bowel loops. Small right inguinal hernia containing fat without inflammatory changes. - ultrasound of scrotum and contents shows :'Right testicle measures 4.9 cm. Left testicle measures 4.3 cm; Testicular parenchyma appears normal bilaterally; Patient is known to have fatty left inguinal hernia which according to this study extends into the scrotum on the left; Left hydrocele - IV pain management with morphine sulfate 2 mg q.4 PRN - IV fluids - PT/INR 10.4/0.98 - chest x-ray shows no acute cardiopulmonary disease - UA negative for UTI - surgery on board, Repair of large left inguinal (direct and indirect hernia) surgery today without any complication on 08/12/25 - Cefazolin 1 g Q 8 #Substance abuse-cannabinoid - seen in UDS - patient counseled extensively on the arms and side effects cannabinoids has a held and encouraged to quit smoking #Obesity, BMI 35.4 - Patient counseled on diet, exercise, lifestyle modification for 18 minutes Diet: Clear liquid Diet Goals of care addressed with the patient for more than 27 minutes: Full code status Case discussed with Dr. Gupta, patient and nurse Assessment/Plan no new complaints wound clean dry and intact no scrotal swelling Plan: no heavy lifting no straining drink plenty of fluids follow up in surgery clinic in two weeks wear scrotal support continuously until further notice Prognosis: Excellent Plan discussed with patient, Dr. Shah Visit Coding Surgery Date of Service if different f: Aug 13, 2025 Billing Provider: RITA SHAH MD Surgery Visit Codes: [id number] INP/OBS CARE(HIGH) ANA LUISA JONES BROADCAST TRANSMITTER OPERATOR Aug 13, 2025 11:28
[2025-08-13 12:21] VITALS: BP 133/81; PULSE 80; RESP 18; TEMP 98.5; O2SAT 98
--- NOTE | 2025-08-13 12:31 | DVHDSRES ---
Discharge Summary Date of Admission Resident Creating Document: FRANNIE KENDALL RESIDENT Aug 11, 2025 at 05:03 Date of Discharge: Aug 13, 2025 Admitting Diagnosis Left inguinal hernia Labs/Diagnostic Data: Laboratory Results Test 08/13/25 04:55 08/12/25 04:54 08/11/25 07:22 08/10/25 22:50 White Blood Count 9.6 10^3/uL (4.4-10.8) Red Blood Count 5.17 10^6/uL (4.5-5.90) Hemoglobin 16.4 g/dL (13.5-17.5) Hematocrit 47.0 % (41.0-53.0) Mean Corpuscular Volume 90.9 fL (80.0-100.0) Mean Corpuscular Hemoglobin 31.7 pg (28.0-32.0) Mean Corpuscular Hemoglobin Concent 34.8 g/dL (32.0-36.0) Red Cell Distribution Width 13.5 % (11.8-14.3) Platelet Count 253 10^3/uL (140-450) Mean Platelet Volume 8.3 fL (6.9-10.8) Neutrophils (%) (Auto) 72.1 % (37.0-80.0) Lymphocytes (%) (Auto) 17.1 % (10.0-50.0) Monocytes (%) (Auto) 8.9 % (0.0-12.0) Eosinophils (%) (Auto) 1.8 % (0.0-7.0) Basophils (%) (Auto) 0.1 % (0.0-2.0) Neutrophils # (Auto) 6.9 10 ^3/uL (1.6-8.6) Lymphocytes # (Auto) 1.6 10 ^3/uL (0.4-5.4) Monocytes # (Auto) 0.9 10 ^3/uL (0-1.3) Eosinophils # (Auto) 0.2 10 ^3/uL (0-0.8) Basophils # (Auto) 0 10 ^3/uL (0-0.2) Nucleated Red Blood Cells 0.1 % Sodium Level 140 mmol/L (136-145) Potassium Level 4.0 mmol/L (3.5-5.1) Chloride Level 104 mmol/L (98-107) Carbon Dioxide Level 27 mmol/L (20-31) Anion Gap 9 (5-15) Blood Urea Nitrogen 7 mg/dL (9-23) Creatinine 0.82 mg/dL (0.700-1.30) Glomerular Filtration Rate Calc 115 mL/min (>90) BUN/Creatinine Ratio 8.5 (10.0-20.0) Serum Glucose 93 mg/dL (74-106) Calcium Level 9.2 mg/dL (8.7-10.4) Prothrombin Time 10.6 sec (9.3-11.8) Prothrombin Time INR 1.00 (0.9-1.15) Activated Partial Thromboplast Time 28.8 SEC (24.5-34.5) Total Bilirubin 0.8 mg/dL (0.2-1.0) Aspartate Amino Transferase (AST) 20 U/L (13-40) Alanine Aminotransferase (ALT) 22 U/L (7-40) Alkaline Phosphatase 81 U/L (46-116) Total Protein 7.3 g/dL (5.7-8.2) Albumin 4.5 g/dL (3.2-4.8) Urine Color Light-yellow (Yellow) Urine Clarity Clear (Clear) Urine pH 7.0 (5.0-9.0) Urine Specific [place] 1.018 (1.001-1.035) Urine Protein Negative (Negative) Urine Ketones Negative (Negative) Urine Blood Negative /uL (Negative) Urine Nitrite Negative (Negative) Urine Bilirubin Negative (Negative) Urine Urobilinogen Normal mg/dL (Negative) Urine Leukocyte Esterase Negative /uL (Negative) Urine RBC <1 /hpf (0 - 3) Urine Microscopic WBC < 1 /HPF (0-3) Urine Squamous Epithelial Cells Few /hpf (<5) Urine Bacteria None seen /hpf (None Seen) Urine Glucose Normal mg/dL (Normal) Urine Opiates Screen Neg (NEGATIVE) Urine Fentanyl Screen Neg (NEGATIVE) Urine Barbiturates Screen Neg (NEGATIVE) Urine Phencyclidine Screen Neg (NEGATIVE) Urine Amphetamines Screen Neg (NEGATIVE) Urine Benzodiazepines Screen Neg (NEGATIVE) Urine Cocaine Screen Neg (NEGATIVE) Urine Cannabinoids Screen Pos (NEGATIVE) Lactic Acid Level 0.6 mmol/L (0.4-2.0) B-Type Natriuretic Peptide 6.47 pg/mL (0-100) Other Laboratory Tests 08/13/25 04:55 Brief Hx & Hospital Course: 40-year-old with no significant past medical history came to this facility for left incarcerated, in reducible inguinal hernia. CT abdomen showed fat containing left inguinal hernia with inflammatory changes but no herniated bowel loops. Small right inguinal hernia containing fat without inflammatory changes. Ultrasound of the scrotum and contents showed right testicle measures 4.9 cm. Left testicle measures 4.3 cm. Testicular parenchyma appears normal bilaterally, patient is known to have left fat inguinal hernia which according to the study extends into the scrotum on the left, left hydrocele. We gave the patient pain medication with morphine sulfate 2 mg q.4 PRN and IV fluids. Surgery was consulted and preop tests were done, EKG and chest x-ray was normal, PT INR was normal as well. UA was negative for UTI. Surgery was on board and repair of the left inguinal direct and indirect hernia was done on 08/12/2025. Cefazolin 1 g Q 8 was then given. UDS shows substance abuse cannabinoids and patient was counseled extensively on the harms and side effects of it and encouraged to quit. Post surgery, patient has been feeding well and stable. We are discharging him with antibiotics. Patient has been counseled to follow up with primary care physician and DC clinic. Patient communicated understanding and we will be discharged home. Pt is lying on bed General Appearance: Alert, Oriented X3, Cooperative, Not in acute distress HEENT: Atraumatic, Mucous membranes moist/pink Respiratory: Clear to auscultation, Normal air movement, No added sounds Cardiovascular: Regular rate, Normal S1, Normal S2, No murmurs Abdominal: Active bowel sounds, Soft, no distention, no tenderness Extremities: No edema, Normal pulses, No tenderness/swelling Skin: No Significant rash, except past surgical scars Neuro: Normal speech, sensorimotor deficits none Psych/Mental Status: Mental status NL, Mood NL Nurse was there as senior pharmacy technician during examination Operations or Procedures CT CT AB PEL WITH IV CON ONLY History: Right inguinal hernia include entire scrotum IMPRESSION: Fat containing left inguinal hernia with inflammatory changes. No herniated bowel loops. Small right inguinal hernia containing fat without inflammatory changes. ULTRASOUND OF SCROTUM AND CONTENTS. INDICATION: R/O testicle ischemia IMPRESSION: 1. Right testicle measures 4.9 cm. Left testicle measures 4.3 cm. 2. Testicular parenchyma appears normal bilaterally 3. Patient is known to have fatty left inguinal hernia which according to this study extends into the scrotum on the left. 4. Left hydrocele CHEST RADIOGRAPH INDICATION: sob IMPRESSION: 1. No acute cardiopulmonary disease. Condition at Discharge: Stable Final Diagnosis/Problems List # Acute incacertaed left inguinal hernia S/p hernia repair # Left hydrocele # Substance abuse-cannabinoid # Obesity, BMI 35.4 Discharge Disposition: Home Discharge Instruct/Medications Diet: Consistent carbohydrate, Cardiac 2g Na,low cholest Activity: Light activity Follow Up/Referral: followup with surgeon in 2 weeks followup at [facility] within 7 days Medications: over the counter pain meds as needed No Active Prescriptions or Reported Meds Discharge Statement: "Patient was advised to return to the ER or call 911 if any headaches, dizziness, shortness of breath, chest pain, abdominal pain, bleeding, fevers, or worsening of medical condition. Patient was counseled about treatment plan, medications, possible side effects, patientverbalized understanding. All questions were answered to the best of my ability. This discharge took greater then 30 minutes in planning, reviewing documentation, counseling the patient, and discussing with other team members." ASSESSMENT ASSESSMENT Assessment acute incacertaed left inguinal hernia s/p surgery Visit Coding STANDARD RES Billing Provider: VALERIE CERRATO MD Date of Service if different f: Aug 13, 2025 Common Visit Codes: [id number] DISCH DAY >30min FRANNIE KENDALL RESIDENT Aug 13, 2025 12:31
[2025-08-13 14:11] VITALS: TEMP 36.9
[2025-08-13 14:18] VITALS: BP 136/77; PULSE 70; RESP 20
== END 2025-08-13 15:30 | disposition home or self-care (01) | DRG 228 ==
LOC: ER 22:08 → OVERFLOW 08-11 05:03 → WEST WING 08-11 16:58
PROVIDERS: ADMIT Internal Medicine Geriatric Medicine; ATTEND Internal Medicine Geriatric Medicine
PROC: 0YQ60ZZ Repair Left Inguinal Region, Open Approach (ICD-10-PCS; principal; 2025-08-12 13:01)
DX: K40.30 Unilateral inguinal hernia, with obstruction, without gangrene, not specified as recurrent (principal); E66.9 Obesity, unspecified; F12.10 Cannabis abuse, uncomplicated; Z68.35 Body mass index [BMI] 35.0-35.9, adult; N43.3 Hydrocele, unspecified; F17.200 Nicotine dependence, unspecified, uncomplicated
CPT/HCPCS: 36415; 71045; 74177; 76870; 80048; 80053; 80307; 81001; 83605; 83880; 85025; 85610; 85730; 86850; 86900; 86901; 93005; G0378; J0131; J2250; J2405; J2704; J3490